=== PATIENT | female | born 1960 | race African-American/Black ===

== ENCOUNTER → 2017-05-27 | Outpatient (CLI) | payer BC ==
[~2017-05-27] MED LIST: ALTACE10 MG PO; ATORVASTATIN CA10 MG PO; B COMPLEX1 CA1 PO; FISH OIL PO; FLEXERIL10 MG PO; HYDROCODON-ACE1 EACH PO; IBUPROFEN800 MG PO; LISINOPRIL-HCTZ1 T20 PO; LODINE400 M1 PO; LODINE400 MG PO; MEPHYTON5 M1 PO; METFORMIN HCL500 M1 PO; OMEGA 3-6-9 CO400 MG PO; OMEGA PO; SPIRONOLACTONE50 MG PO; TRAMADOL HCL E200 MG PO; VITAMIN K100 MCG PO; ZYRTEC10 M2 PO
--- NOTE | ~2017-05-27 | MY29 ---
[facility] A Service of [facility] RADIOLOGY TEXT RESULTS PATIENT: JARROD BUNDY LOCATION: [facility] : 56 UNIT #: [id number] AGE: [address]: Chinedu Whaley MD SEX: F ORDER DR: [id number] [facility] [address] [place], [place] [address] [id number] O MR#: [id number] Acc #: [id number] NAME: JARROD BUNDY I. : 1960 SEX: F STUDY DATE/TIME: 05/27/2017 10:16 UNIT: [facility] ROOM: STUDY DESCRIPTION: MY CHRIS SCREENING W/ CAD BILAT Attending Physician: Chinedu Whaley Jr., M.D. Referring Physician: Chinedu Whaley Jr., M.D. Ordering Physician: Chinedu Whaley Jr., M.D. Primary Care Physician: Chinedu Whaley Jr., M.D. MEDICAL IMAGING REPORT This report is preliminary unless electronic signature is present EXAM Digital screening mammogram 05/27/2017 [facility] HISTORY 56-year-old woman, positive family history, aunt age 55. Annual screen. COMPARISON Mammogram 02/04/2015 FINDINGS Digital imaging of each breast was completed utilizing a two-view examination of each breast in craniocaudal and mediolateral-oblique projections. Review and interpretation of digital mammograms include a second review in conjunction with FDA-approved CAD device. There is a normal parenchymal presentation bilaterally consistent with the patient's age. There are no breast masses imaged and no parenchymal asymmetry is visualized. There are no suspicious microcalcifications and I see no focal architectural disturbance. IMPRESSION Negative screening digital mammogram. One-year followup recommended. Patients over the age of 40 are entered into a reminder system with target due date for the next mammogram. A result letter will also be sent to the patient. BIRADS: 1 Negative Dictated by... Hayden Dunn M.D. [facility] A Service of [facility] RADIOLOGY TEXT RESULTS PATIENT: JARROD BUNDY LOCATION: [facility] : 56 UNIT #: [id number] AGE: [address]: Chinedu Whaley MD SEX: F ORDER DR: THIS IS AN ELECTRONICALLY VERIFIED REPORT Hayden Dunn M.D. at 05/29/2017 8:06 AM JENNIFER/go TD: 05/27/2017 19:35 JOB #: [id number] MEDICAL IMAGING REPORT Page 1 of 1 COPY
== END | disposition home or self-care (01) ==
LOC: CWCC 09:45
DX: Z12.31 Encounter for screening mammogram for malignant neoplasm of breast (principal); Z80.3 Family history of malignant neoplasm of breast
CPT/HCPCS: G0202

== ENCOUNTER 2017-07-20 12:08 | Emergency (ER) | payer BC ==
[~2017-07-20] VITALS: Ht 177.8 cm; Wt 113.4 kg
== END 2017-07-20 13:55 | disposition home or self-care (01) ==
LOC: CED 12:08
DX: S46.912A Strain of unspecified muscle, fascia and tendon at shoulder and upper arm level, left arm, initial encounter (principal); X58.XXXA Exposure to other specified factors, initial encounter
CPT/HCPCS: 96372; 99283; J1885